=== PATIENT | female | born 1945 | race Caucasian/White ===

== ENCOUNTER 2016-08-31 12:57 | Outpatient (CLI) | payer MEDICARE, BC | END 2016-08-31 12:58 | disposition home or self-care (01) | DX: Z12.31 Encounter for screening mammogram for malignant neoplasm of breast (principal); Z98.82 Breast implant status ==

== ENCOUNTER 2017-11-29 14:45 | Outpatient (CLI) | payer MEDICARE, BC ==
--- NOTE | 2017-11-30 19:46 | Mammography Report ---
DIGITAL SCREENING MAMMOGRAM: 11/29/2017 CLINICAL INDICATION: A 72-year-old with history of bilateral implants for screening. TECHNIQUE: Routine CC and MLO projections were obtained of the breasts. Bilateral implant displaced views. COMPARISON: 08/2016, 07/2015, 06/2014, 06/2013, 01/2012, 01/2011 FINDINGS: The breasts demonstrate scattered fibroglandular densities bilaterally. Bilateral subglandular saline implants are stable. No suspicious masses, clustered microcalcifications, or regions of architectural distortion are identified. IMPRESSION: BENIGN FINDINGS. RECOMMENDATION: Routine annual screening unless otherwise clinically indicated. BIRADS CATEGORY - 2 BENIGN FINDINGS. STANDARD QUALIFYING STATEMENTS: 1. This examination was reviewed with the aid of Computer-Aided Detection (CAD). 2. A negative or benign imaging report should not delay biopsy if clinically suspicious findings are present. Consider surgical consultation if warranted. More than 5% of cancers are not identified by imaging. 3. Dense breasts may obscure an underlying neoplasm. TD: 11/30/2017 19:45
== END 2017-11-29 14:46 | disposition home or self-care (01) ==
LOC: DI 14:45
PROVIDERS: ATTEND Physician Assistant
DX: Z12.31 Encounter for screening mammogram for malignant neoplasm of breast (principal); Z98.82 Breast implant status
CPT/HCPCS: 77067

== ENCOUNTER 2018-01-10 12:05 | Day surgery (SDC) | payer MEDICARE, BC ==
[2018-01-10] MEDS ORDERED: LACTATED RINGERS 1,000 ML IV ONE (12:47)
[2018-01-10] MEDS ORDERED: fentaNYL 250 MCG/5 ML VIAL IVP ONE (13:00)
[2018-01-10] MEDS ORDERED: MIDAZOLAM 2 MG/2 ML VIAL IVP ONE (13:00)
--- NOTE | 2018-01-10 13:28 | SURGERY HX AND PHYSICAL(T) ---
Surgical History & Physical - PMH/PSH/Social Hx Does the pt have a hx of MRSA?: No Eyes, Ears, Nose, Throat: None Cardiovascular: None Respiratory: None Endocrine/Autoimmune: None Gastrointestinal: None Urinary: None Musculoskeletal: Osteoarthritis Psychiatric: Depression, Anxiety Smoking Status: Never smoker Does the pt drink ETOH?: No Does the pt have substance abuse?: No - Home Meds and Allergies Home Medications: Estradiol [Estring] 11/22/13 Meloxicam 7.5 gm MC PRN PRN 11/22/13 Zolpidem [Ambien] 10 mg PO HS 11/28/13 Allergies/Adverse Reactions: Allergies Allergy/AdvReac Type Severity Reaction Status Date / Time No Known Drug Allergies Allergy Verified 01/10/18 12:48 - Vital Signs Temperature: 36.3 C Respiratory Rate: 16 O2 Saturation: 96 Weight (kg): 74.4 kg Height: 1.68 m - Patient Review Patient Review: Problems were reviewed with the patient during this visit. Medications were reviewed with the patient during this visit. Allergies were reviewed this patient during this visit. Pertinent Tests Reviewed: All pertitent test for this patient were reviewed. - Assessment & Plan Assessment and Plan: Dr. Edwin Diana/Taina Shah PA-C initially sent this very pleasant 72 year-old female to my office for a colonoscopy consult on November. She describes her bowel movements as regular and normal. She denies nausea, vomiting, constipation, diarrhea, melena, hematochezia, hematemesis, abdominal pain, unexplained weight loss, or change in the color, character or caliber of her stool. Her last colonoscopy was performed July 22, 2007 at [facility] in [facility] by Dr. Emeka Rob. It was described as a normal colonoscopy with internal hemorrhoids. Because more than 30 days passed between the initial visit and the colonoscopy today this update H&P is indicated. Current Allergies: No Known Allergies Current Meds: SUPREP BOWEL PREP KIT 17.5-3.13-1.6 GM/180ML ORAL SOLUTION (NA SULFATE-K SULFATE -MG SULF) Take one (6oz) bottle by mouth the PM before colonoscopy & one (6oz) bottle by mouth the AM of colonoscopy as directed by surgical clinic MELOXICAM 15 MG ORAL TABLET (MELOXICAM) Take one tablet by mouth daily as needed for pain AMBIEN 10 MG ORAL TABLET (ZOLPIDEM TARTRATE) One tablet at bedtime prn insomnia for travel ESTRING 2 MG VAGINAL RING (ESTRADIOL) Insert new ring every 3 months Past Surgical History: Breast Implant Ankle Family History Summary: Mother () - Has Family History of Heart Disease - Entered On: 11/25/2017 General Comments - FH: Father: age 77 with lung cancer, smoker Mother: heart problems Siblings: Heart attack, hypertension, arthritis in the family Risk Factors: Smoked Tobacco Use: Former smoker Cigarettes: Yes Year quit: 1989 Years Since Last Quit: 28 Drug use: no Alcohol use: yes Drinks per day: 2 Exercise: yes Type of Exercise: Biking, golf, hiking Review of Systems CONSTITUTIONAL: No weight loss, fever, chills, weakness or fatigue. HEENT: Eyes: No visual loss, blurred vision, double vision or yellow sclerae. Ears, Nose, Throat: No hearing loss, sneezing, congestion, runny nose or sore throat. SKIN: No rash or itching. CARDIOVASCULAR: No chest pain, chest pressure or chest discomfort. No palpitations or edema. RESPIRATORY: No shortness of breath, cough or sputum. GASTROINTESTINAL: No anorexia, nausea, vomiting or diarrhea. No abdominal pain or blood. GENITOURINARY: No dysuria. Not . NEUROLOGICAL: No headache, dizziness, syncope, paralysis, ataxia, numbness or tingling in the extremities. No change in bowel or bladder control. MUSCULOSKELETAL: No muscle, back pain, joint pain or stiffness. HEMATOLOGIC: No anemia, bleeding or bruising. LYMPHATICS: No enlarged nodes. No history of splenectomy. PSYCHIATRIC: No history of depression or anxiety. ENDOCRINOLOGIC: No reports of sweating, cold or heat intolerance. No polyuria or polydipsia. ALLERGIES: No history of asthma, hives, eczema or rhinitis.. Physical Exam General: 72 year old female, appears much younger than stated age, well developed, well nourished, evaluated in Room 3 [facility] HEENT: Normocephalic, atraumatic, extraocular movement intact, mucous membranes pink and moist, sclera anicteric and not injected, glasses Vitals: refer to nurses note Neck: Supple without pain on palpation, mass or bruit Cardiac: Regular rate and rhythm without rub, gallop, or murmur Chest: Clear to auscultation bilaterally Abdomen: Soft, nontender, normoactive bowel sounds, no hepatomegaly, no splenomegaly Genitourinary: Deferred Rectal: Deferred until colonoscopy Extremities: No gross neurovascular problem, no clubbing, cyanosis or edema Gait: No gross motor deficit Psychiatric: Alert and oriented to person place and time, asks and answers questions appropriately, mood and affect appropriate Impression & Recommendations: Screening colonoscopy with possible biopsies and/or polypectomies. Indications , procedure, alternatives (such as barium enema, Cologuard and even no procedure at all) and risks including but not limited to perforation requiring operative repair, bleeding with its risks, and were fully explained to him. In the office, I jessee diagrams explaining the colonic anatomy and the proposed procedure and handed it to him. In the office, conscious sedation was discussed at length with him as were its risks including but not limited to loss of airway, aspiration, respiratory depression, and not enough relief of pain and anxiety and he indicated that he wished to have conscious sedation for his procedure. In the office, I explained that MAC anesthesia is associated with a higher incidence of colon perforation. Review of his history does not reveal any significant systemic disease that would contraindicate use of conscious sedation or MAC anesthesia. All questions were fully answered. Verbal and written consent was obtained. The patient in preparation for his colonoscopy has been n.p.o. and his colon has been mechanically prepped. 20 minutes of [id number] time spent with the patient the majority of which was spent in discussion and in the generation of this document
[2018-01-10 14:54] VITALS: BP 112/59
== END 2018-01-10 12:06 | disposition home or self-care (01) ==
LOC: SDS 12:05
PROVIDERS: ATTEND Surgery
PROC: 0DJD8ZZ Inspection of Lower Intestinal Tract, Via Natural or Artificial Opening Endoscopic (ICD-10-PCS; principal; 2018-01-10 14:15)
DX: Z12.11 Encounter for screening for malignant neoplasm of colon (principal); K57.90 Diverticulosis of intestine, part unspecified, without perforation or abscess without bleeding; K64.8 Other hemorrhoids; Z87.891 Personal history of nicotine dependence
CPT/HCPCS: 45378; J3010; J7120

== ENCOUNTER 2018-02-07 16:45 | Outpatient (CLI) | payer MEDICARE, BC ==
--- NOTE | 2018-02-08 22:14 | MRI Report ---
Procedure Date: 02/07/2018 Accession Number: [id number] / [id number] Procedure: MRI - Lumbar Spine W/O CPT Code: FULL RESULT: EXAM: MRI LUMBAR SPINE WITHOUT CONTRAST EXAM DATE: 02/07/2018 06:11 PM. CLINICAL HISTORY: Severe low back pain. COMPARISON: None available. TECHNIQUE: Multiplanar, multisequence T1-weighted and fluid-sensitive sequences of the lumbar spine from T12 to S1 without contrast. Other: None. FINDINGS: Spinal Cord: The conus terminates at L1. The conus medullaris and cauda equina are unremarkable. Contour, caliber, and signal of the visible thoracic cord from T9 through T12 appear unremarkable. Alignment: 23 degrees dextroconvex scoliosis centered at the L3 as measured by Jade method between T12-L1 and L5-S1. 6 mm anterolisthesis of L4 on L5. Bone Marrow: Five [id number] lumbar vertebral bodies are assumed. No gross fractures or bone lesions. No bone marrow edema. Type II endplate marrow changes on the left lateral L3-L4 and ventral L1-L2 endplates. Disk Levels/Facets: T9-T10: Disk desiccation without significant canal or foraminal narrowing. T10-T11: Disk desiccation, annular bulge. No significant canal or foraminal narrowing. Mild bilateral facet arthropathy. T11-T12: Disk desiccation. Annular bulge. Moderate disk height loss. No significant canal or foraminal narrowing. T12-L1: Disk desiccation. Right foraminal annular fissure and bulging. Mild right foraminal narrowing. Mild canal narrowing. L1-L2: Annular bulge. Moderate disk height loss. Mild bilateral facet arthropathy. Mild left subarticular narrowing. Mild bilateral foraminal narrowing. L2-L3: Annular bulge, disk desiccation, and moderate disk height loss. Left foraminal/extraforaminal eccentric disk osteophyte complex. Mild left foraminal narrowing. Mild bilateral facet arthropathy. Mild left subarticular narrowing. L3-L4: Moderate disk height loss and disk desiccation. Mild bilateral facet arthropathy and ligamentum flavum thickening. Mild left foraminal narrowing. Mild left subarticular narrowing. L4-L5: Anterolisthesis. Disk desiccation. Annular bulge. Bilateral facet arthropathy and ligamentum flavum thickening. Small T2 hyperintense probable synovial cyst anteromedial to the right facet joint (image 8 series 501). Mild subarticular narrowing and mild canal narrowing. Mild to moderate right, mild left foraminal narrowing. Anteroposterior canal diameter at midline measures 10 mm, mild canal narrowing. L5-S1: Disk desiccation. Mild bilateral facet arthropathy. No significant canal or foraminal narrowing. Musculature: Normal. No edema or fatty atrophy. Other: The partially visualized retroperitoneum is unremarkable. IMPRESSION: 1. 23 degrees dextroconvex lumbar scoliosis is measured by Jade method between T12-L1 and L5-S1. 2. 6 mm anterolisthesis of L4 on L5. 3. At L1-L2, mild bilateral foraminal narrowing. Mild left subarticular narrowing. 4. At L2-L3, left foraminal/extraforaminal disk osteophyte complex, mild left foraminal narrowing. Mild left subarticular narrowing. 5. At L3-L4, mild bilateral facet arthropathy and ligamentum flavum thickening. Mild left foraminal narrowing and mild left subarticular narrowing. 6. At L4-L5, bilateral facet arthropathy and ligamentum flavum thickening. 3 mm T2 hyperintense probable synovial cyst projects medially without effacement of the right lateral recess or impingement of the right L5 nerve root. Mild canal narrowing. Mild to moderate right, mild left foraminal narrowing. 7. At L5-S1, mild bilateral facet arthropathy without significant canal or foraminal narrowing. Comment: The following findings are so common in adults without low back pain that while we report their presence, they must be interpreted with caution and in the context of the clinical situation. (Reference Carlenevik et al, Spine 2001) Prevalence of findings in patients without low back pain: Disk degeneration (any evidence): 92% Disk desiccation/T2 signal loss: 83% Disk height loss: 56% Disk bulge: 64% Disk protrusion: 32% Annular tear/high intensity zone: 38% RADIA
== END 2018-02-07 16:46 | disposition home or self-care (01) ==
LOC: DI 16:45
PROVIDERS: ATTEND Physician Assistant
DX: M51.36 Other intervertebral disc degeneration, lumbar region (principal); M47.896 Other spondylosis, lumbar region; M51.37 Other intervertebral disc degeneration, lumbosacral region; M47.897 Other spondylosis, lumbosacral region; M41.85 Other forms of scoliosis, thoracolumbar region; M41.87 Other forms of scoliosis, lumbosacral region; M43.16 Spondylolisthesis, lumbar region; M48.061 Spinal stenosis, lumbar region without neurogenic claudication
CPT/HCPCS: 72148

== ENCOUNTER 2019-02-13 12:47 | Outpatient (CLI) | payer MEDICARE, BC ==
--- NOTE | 2019-02-14 09:21 | Mammography Report ---
Reason: ENCOUNTER FOR SCREENING MAMMOGRAM FOR MALIGNANT NE Procedure Date: 02/13/2019 Accession Number: [id number] / [id number] Procedure: MGS - Screening Mammo Dig w/Implants CPT Code: FULL RESULT: EXAM: Screening Mammo Dig w/Implants DATE: 02/13/2019 1:16 PM CLINICAL HISTORY: Screening examination. History of early menses. History of breast augmentation. TECHNIQUE: (B) - Bilateral CC and MLO views were obtained. Views are obtained in standard and implant displaced fashion. COMPARISON: 11/29/2017 through 06/18/2014. PARENCHYMAL PATTERN: (A) - The breast(s) demonstrate(s) scattered fibroglandular densities. FINDINGS: Best seen in the left MLO implant displaced view is a increasing asymmetry upper breast 2.2 cm from the nipple with the implant displaced. An 1.7 cm on the MLO view without implant displacement. Left CC view demonstrates no definite correlate with or without implant displacement. Additional mammographic views including spot and ideally 3-D imaging as well as ultrasound are recommended for clarification. There are no suspicious masses, calcifications, or areas of distortion. IMPRESSION: Incomplete examination. BI-RADS category 0. RECOMMENDATION: (ADDMU) - Additional views using both Mammography and Ultrasound recommended. Left upper breast as described BI-RADS CATEGORY: (0) - Incomplete Examination - need additional evaluation. STANDARD QUALIFYING STATEMENTS: 1. This examination was reviewed with the aid of Computer-Aided Detection (CAD). 2. A negative or benign imaging report should not preclude biopsy if clinically suspicious findings are present. 3. Dense breasts may obscure an underlying neoplasm. 4. This examination was reviewed without the aid of 3D breast imaging (tomosynthesis).
== END 2019-02-13 12:48 | disposition home or self-care (01) ==
LOC: DI.S 12:47
PROVIDERS: ATTEND Physician Assistant
DX: Z12.31 Encounter for screening mammogram for malignant neoplasm of breast (principal); Z98.82 Breast implant status
CPT/HCPCS: 77067

== ENCOUNTER 2019-03-01 10:57 | Outpatient (CLI) | payer MEDICARE, BC ==
--- NOTE | 2019-03-01 17:35 | Mammography Report ---
Reason: ABNORMAL MAMMOGRAM Procedure Date: 03/01/2019 Accession Number: [id number] / [id number] Procedure: RASHIDA - Diag Special Views Dig LT CPT Code: FULL RESULT: EXAM: Diag Special Views Dig LT DATE: 03/01/2019 12:00 PM CLINICAL HISTORY: Diagnostic examination. The patient is recalled from screening for left breast increasing focal asymmetry. TECHNIQUE: (L) - Left left spot MLO and left MLO implant displaced views are obtained. Focused left breast ultrasound is performed. COMPARISON: 02/13/2019 through 06/18/2014. PARENCHYMAL PATTERN: (A) - The breast(s) demonstrate(s) scattered fibroglandular densities. FINDINGS: The focal asymmetry persists on spot imaging with an appearance most suggestive of focal breast tissue, impression is supported by 3-D mammographic appearance. Focused breast ultrasound of the same region reveals normal-appearing breast tissue with no architectural distortion or abnormal masses identified. The displaced implant is partially seen. There are no suspicious masses, calcifications, or areas of distortion. IMPRESSION: Benign findings. BI-RADS category 2. RECOMMENDATION: (ANNUAL) - Recommend routine annual screening mammography. BI-RADS CATEGORY: (2) - Benign Findings. STANDARD QUALIFYING STATEMENTS: 1. This examination was not reviewed with the aid of Computer-Aided Detection (CAD). 2. A negative or benign imaging report should not preclude biopsy if clinically suspicious findings are present. 3. Dense breasts may obscure an underlying neoplasm. 4. This examination was reviewed with the aid of 3D breast imaging (tomosynthesis).
== END 2019-03-01 10:58 | disposition home or self-care (01) ==
LOC: DI 10:57
PROVIDERS: ATTEND Physician Assistant
DX: R92.2 Inconclusive mammogram (principal)
CPT/HCPCS: 76642; 77065; G0279

== ENCOUNTER 2020-07-17 11:01 | Outpatient (CLI) | payer MEDICARE, BC ==
--- NOTE | 2020-07-18 09:05 | Mammography Report ---
BILATERAL DIGITAL SCREENING MAMMOGRAM 3D/2D WITH AUGMENTATION: 07/17/2020 CLINICAL: Routine screening. Comparison is made to exams dated: 03/01/2019 ultrasound, 03/01/2019 mammogram, 02/13/2019 mammogram, mammogram, and 08/31/2016 mammogram - [facility]. The tissue of both breast s is predominantly fatty. Bilateral breast implants are intact. There are benign calcifications in both breasts. No significant masses, calcifications, or other findings are seen in either breast. There has been no significant interval change. IMPRESSION: BENIGN There is no mammographic evidence of malignancy. A 1 year screening mammogram is recommended. This exam was interpreted at Station ID: [id number]. NOTE: For mammograms, a report in lay terms will be sent to the patient. Approximately 15% of breast malignancies will not be visualized mammographically. In the management of a palpable breast mass, a negative mammogram must not discourage biopsy of a clinically suspicious lesion. Electronically Signed By: Shelly her/joanie:07/17/2020 18:32:59 ACR BI-RADS Category 2: Benign Finding(s) 3342F PARENCHYMAL PATTERN: (F) - The breast(s) demonstrate(s) diffuse fatty replacement. BI-RADS CATEGORY: (2) - 2 RECOMMENDATION: (ANNUAL) - Recommend routine annual screening mammography. [id number] 1 year screening LATERALITY: (B)
== END 2020-07-17 11:02 | disposition home or self-care (01) ==
LOC: DI.N 11:01
DX: Z12.31 Encounter for screening mammogram for malignant neoplasm of breast (principal)

== ENCOUNTER 2021-02-12 08:56 | Outpatient (CLI) | payer MEDICARE, BC ==
[2021-02-12 15:16] LABS: BILIRUBIN,URINE NEGATIVE (NEGATIVE); GLUCOSE, URINE (UA) NEGATIVE (NEGATIVE); KETONES,URINE (UA) NEGATIVE (NEGATIVE); LEUKOCYTE ESTERASE, URINE NEGATIVE (NEGATIVE); NITRITE,URINE NEGATIVE (NEGATIVE); OCCULT BLOOD,URINE TRACE-INTA (NEGATIVE); PROTEIN,URINE NEGATIVE (NEGATIVE); UROBILINOGEN,URINE 0.2 (NORMAL) E.U./dL (NORMAL)
[2021-02-12 15:20] LABS: CLARITY,URINE CLEAR (CLEAR)
[2021-02-12 15:27] LABS: ALBUMIN 3.6 g/dL (3.2-5.5); ALBUMIN/GLOBULIN RATIO 0.9 (1.0-2.2); ALKALINE PHOSPHATASE 52 IU/L (42-121); ALT ALANINE AMINOTRANSFERASE 26 IU/L (10-60); AST ASPARTATE AMINOTRANSFERASE 33 IU/L (10-42); BILIRUBIN,TOTAL 1.6 mg/dL (0.2-1.0); BUN - BLOOD UREA NITROGEN 17 mg/dL (6-20); CALCIUM 9.3 mg/dL (8.5-10.3); CARBON DIOXIDE - CO2 29 mmol/L (21-32); CHLORIDE 107 mmol/L (101-111); CHOL/HDL RATIO 2.3 (<4.4); CHOLESTEROL 173 mg/dL; CREATININE 0.7 mg/dL (0.4-1.0); GFR - MDRD 82 (>89); GLUCOSE 96 mg/dL (70-100); HDL CHOLESTEROL 74 mg/dL; LDL CHOLESTEROL,CALCULATED 91 mg/dL; LDL/HDL RATIO 1.2 (<4.4); POTASSIUM 4.5 mmol/L (3.5-5.0); SODIUM 144 mmol/L (135-145); TOTAL PROTEIN 7.4 g/dL (6.7-8.2); TRIGLYCERIDES 42 mg/dL; VLDL CHOLESTEROL 8 mg/dL
[2021-02-12 15:53] LABS: BACTERIA,URINE Rare /HPF (None Seen); RBC,URINE 0-5 /HPF (0-5); SQUAMOUS EPITHELIAL CELL,UR FEW Squamous (<= Few); WBC,URINE 0-3 /HPF (0-5)
== END 2021-02-12 08:57 | disposition home or self-care (01) ==
LOC: LAB.S 08:56
PROVIDERS: ATTEND Nurse Practitioner Family
DX: R31.29 Other microscopic hematuria (principal); R03.0 Elevated blood-pressure reading, without diagnosis of hypertension
CPT/HCPCS: 36415; 80053; 80061; 81001; 83721; 84443

== ENCOUNTER 2023-01-27 07:17 | Outpatient (CLI) | payer MEDICARE, BC ==
[2023-01-27 14:33] LABS: BASOPHILS # (AUTO) 0.1 10^3/uL (0.0-0.1); BASOPHILS % (AUTO) 1.3 %; EOSINOPHILS # (AUTO) 0.1 10^3/uL (0.0-0.7); EOSINOPHILS % (AUTO) 1.4 %; HCT - HEMATOCRIT 43.6 % (37.0-47.0); HGB - HEMOGLOBIN 13.8 g/dL (12.0-16.0); LYMPHOCYTES # (AUTO) 1.6 10^3/uL (1.5-3.5); LYMPHOCYTES % (AUTO) 29.1 %; MEAN CORPUSCULAR HEMOGLOBIN 32.5 pg (27.0-31.0); MEAN CORPUSCULAR HGB CONC 31.7 g/dL (32.0-36.0); MEAN CORPUSCULAR VOLUME 102.8 fL (81.0-99.0); MEAN PLATELET VOLUME 9.9 fL (7.9-10.8); MONOCYTES # (AUTO) 0.5 10^3/uL (0.0-1.0); MONOCYTES % (AUTO) 8.8 %; NEUTROPHILS # (AUTO) 3.3 10^3/uL (1.5-6.6); PLT - PLATELET COUNT 322 10^3/uL (130-450); RED BLOOD COUNT 4.24 10^6/uL (4.20-5.40); RED CELL DISTRIBUTION WIDTH 13.8 % (12.0-15.0); WHITE BLOOD COUNT 5.6 x10^3/uL (4.8-10.8)
[2023-01-27 14:54] LABS: % IRON SATURATION 26 % (20-50); ALBUMIN 3.2 g/dL (3.2-5.5); ALBUMIN/GLOBULIN RATIO 0.9 (1.0-2.2); ALKALINE PHOSPHATASE 46 IU/L (42-121); ALT ALANINE AMINOTRANSFERASE 21 IU/L (10-60); AST ASPARTATE AMINOTRANSFERASE 27 IU/L (10-42); BILIRUBIN,TOTAL 1.2 mg/dL (0.2-1.0); BUN - BLOOD UREA NITROGEN 25 mg/dL (6-20); CALCIUM 8.8 mg/dL (8.5-10.3); CARBON DIOXIDE - CO2 30 mmol/L (21-32); CHLORIDE 107 mmol/L (101-111); CHOL/HDL RATIO 1.9 (<4.4); CHOLESTEROL 154 mg/dL; CREATININE 0.8 mg/dL (0.4-1.0); GFR - MDRD 70 (>89); GLUCOSE 90 mg/dL (70-100); HDL CHOLESTEROL 80 mg/dL; IRON 73 ug/dL (28-170); POTASSIUM 4.5 mmol/L (3.5-5.0); SODIUM 143 mmol/L (135-145); TOTAL IRON BINDING CAPACITY 283 ug/dL (250-450); TOTAL PROTEIN 6.9 g/dL (6.7-8.2); TRANSFERRIN 202 mg/dL (192-382); TRIGLYCERIDES 17 mg/dL
[2023-01-27 15:01] LABS: THYROID STIMULATING HORMONE 1.84 uIU/mL (0.34-5.60)
[2023-01-27 15:07] LABS: FERRITIN 92.2 ng/mL (11.0-306.8)
[2023-01-27 15:10] LABS: FOLATE 7.68 ng/mL (5.90 - >24.8)
[2023-01-27 20:57] LABS: ESTIMATED AVERAGE GLUCOSE 100 mg/dL (70-100); HEMOGLOBIN A1c% 5.1 % (4.27-6.07)
== END 2023-01-27 07:18 | disposition home or self-care (01) ==
LOC: LAB.S 07:17
PROVIDERS: ATTEND Family Medicine
DX: R53.83 Other fatigue (principal)
CPT/HCPCS: 36415; 80053; 80061; 82306; 82607; 82728; 82746; 83036; 83540; 83721; 83880; 84443; 84466; 85025

== ENCOUNTER 2024-02-23 08:11 | Outpatient (CLI) | payer MEDICARE, BC ==
--- NOTE | 2024-02-23 08:58 | XRAY Report ---
PROCEDURE: Knee 3V RT INDICATIONS: RIGHT KNEE PAIN TECHNIQUE: 3 views of the knee(s) were acquired. COMPARISON: None. FINDINGS: Bones: Moderate to severe degenerative changes, with [id number] apposition in the medial compartmen t. No acute displaced fracture. Soft tissues: Small intra-articular bone fragments are seen. Small joint effusion. IMPRESSION: Moderate to severe degenerative changes especially in the medial compartment. Small joint effusion. S mall intra-articular bone fragments. If there is high concern for further derangement, consider MRI evaluation. Reviewed by: Vamsi Branch MD on 02/23/2024 8:57 AM PDT Approved by: Vamsi Branch MD on 02/23/2024 8:57 AM PDT Station ID: [id number]
== END 2024-02-23 08:12 | disposition home or self-care (01) ==
LOC: DI.S 08:11
DX: M17.11 Unilateral primary osteoarthritis, right knee (principal); M25.461 Effusion, right knee